=== PATIENT | female | born 1935 | race Caucasian/White ===

== ENCOUNTER 2024-01-11 13:49 | Outpatient (CLI) | payer MEDICARE | END 2024-01-11 13:50 | disposition home or self-care (01) | LOC: CSHULT 13:49 | PROVIDERS: ATTEND Internal Medicine Interventional Cardiology | DX: I10 Essential (primary) hypertension (principal); I48.0 Paroxysmal atrial fibrillation; E78.2 Mixed hyperlipidemia; I07.1 Rheumatic tricuspid insufficiency; I27.20 Pulmonary hypertension, unspecified | CPT/HCPCS: 93306; 93880 ==